=== PATIENT | female | born 1960 | race Caucasian/White ===

== ENCOUNTER 2016-10-26 18:04 | Emergency (ER) | payer BC, OTHER ==
[2016-10-26] MEDS ORDERED: NS 0.9% 1000 ML* 1,000 ML IV ONE (19:48)
[2016-10-26] MEDS ORDERED: Levofloxacin 750 MG IVPREMIX(* 750 MG/150 ML BAG IVPB ONE (19:53)
[2016-10-26] MEDS ORDERED: methylPREDNISolone 125 MG* 2 ML VIAL IV ONE (19:53)
[2016-10-26 20:19] LABS: Hematocrit 39 % (35-47); Hemoglobin 12.9 g/dl (12.0-16.0); Mean Corpuscular HGB Conc 33 g/dl (31-36); Mean Corpuscular Hemoglobin 31 pg (27-31); Mean Corpuscular Volume 92 fL (80-97); Mean Platelet Volume 9 um3 (7.4-10.4); Red Blood Count 4.24 10^6/ul (4.0-5.4); Red Cell Distribution Width 14 % (10.5-15); White Blood Count 5.6 10^3/ul (3.5-10.8)
[2016-10-26 20:38] LABS: BUN/Creatinine Ratio 14.2 (8-20); C Reactive Protein 15.95 mg/L (< 5.00); Calcium 9.5 mg/dL (8.6-10.3); EGFR African American 69.2 (>60); EGFR Non-African American 53.8 (>60); Globulin 3.5 g/dL (2-4); Potassium 3.5 mmol/L (3.5-5.0); Total Bilirubin 0.5 mg/dL (0.2-1.0); Total Protein 7.5 g/dL (6.4-8.9)
[2016-10-26] MEDS: Albuterol/Ipratropium NEB.SOL* Albuterol 2.5 MG/Ipratropium 0.5 MG 3 ML INH SCH ×2 (20:39→21:01)
--- NOTE | 2016-10-26 20:47 | RAD ---
INDICATION: Cough. COMPARISON: Comparison is made with a prior study from July 06, 2013. TECHNIQUE: Dual-energy PA and lateral views of the chest were obtained. FINDINGS: The heart is within normal limits in size. Mediastinal and hilar contours appear within normal limits. The lungs are hyperinflated and clear. No pleural effusion is seen. IMPRESSION: FINDINGS SUGGESTIVE OF COPD, NO EVIDENCE FOR ACUTE FINDING.
[2016-10-26 21:39] LABS: Urine Bilirubin 1+ (Negative); Urine Glucose Negative (Negative); Urine Nitrite Negative (Negative)
[2016-10-26] MEDS ORDERED: Azithromycin TAB* 250 MG PO ONE (21:46)
--- NOTE | 2016-10-26 22:02 | ED ---
Angel Amaro Billy, scribed for Dieter Leach MD on 10/26/16 at 1952 . Respiratory - HPI Summary HPI Summary: Patient is a 55 year-old female coming to [facility] presenting with URI symptoms starting 6 days ago. She states that it began with a sore throat and worsened to chest congestion, wheezing, and productive cough after 2 days. She also reports decreased appetite and fatigue. However, despite a history of COPD and chronic bronchitis, she denies any increased SOB compared to usual. Denies any chest pain. Patient is a former smoker, quit 1 year ago. - History of Current Complaint Chief Complaint: EDShortnessOfBreath Stated Complaint: UPPER RESPIRATORY COMPLAINT Time Seen by Provider: 10/26/16 19:36 Hx Obtained From: Patient Onset/Duration: Gradual Onset, Lasting Days, Still Present Timing: Constant Initial Severity: Moderate Current Severity: Moderate Character: Wheezing, Cough (Productive) Sputum Amount: Moderate Aggravating Factor(s): URI Alleviating Factor(s): Nothing Associated Signs and Symptoms: URI, Wheezing - Allergy/Home Medications Allergies/Adverse Reactions: Allergies Allergy/AdvReac Type Severity Reaction Status Date / Time No Known Allergies Allergy Verified 01/19/16 07:23 PMH/Surg Hx/FS Hx/Imm Hx Endocrine/Hematology History: Denies: Hx Diabetes Cardiovascular History: Reports: Hx Hypertension Denies: Hx Congestive Heart Failure Respiratory History: Reports: Hx Chronic Bronchitis, Hx Chronic Obstructive Pulmonary Disease (COPD) - chronic bronchitis, Hx Pneumonia - walking pneumonia , Other Respiratory Problems/Disorders - copd Comment Only: Hx Sleep Apnea - never tested, wakes up gasping at times History: Denies: Hx Renal Disease Musculoskeletal History: Reports: Hx Arthritis, Hx Back Problems Denies: Hx Bursitis, Hx Congenital Bone Abnormalities, Hx Fibromyalgia, Hx Gout, Hx Orthopedic Injury, Hx Osteoporosis, Hx Scoliosis, Hx Tendonitis, Other Musculoskeletal History Sensory History: Reports: Hx Contacts or Glasses Denies: Hx Cataracts, Hx Eye Injury, Hx Eye Prosthesis, Hx Glaucoma, Hx Legally Blind, Hx Macular Degeneration, Hx Vision Problem, Hx Deafness, Hx Hearing Aid, Hx Hearing Problem, Other Sensory Impairments Opthamlomology History: Reports: Hx Contacts or Glasses Denies: Hx Cataracts, Hx Eye Injury, Hx Eye Prosthesis, Hx Glaucoma, Hx Legally Blind, Hx Macular Degeneration, Hx Vision Problem, Other Sensory Impairments Neurological History: Reports: Hx Migraine Denies: Hx Dementia, Hx Developmental Delay, Hx Headaches, Hx Nerve Disease, Hx Seizures, Hx Spinal Cord Injury, Hx Transient Ischemic Attacks (TIA), Other Neuro Impairments/Disorders - Cancer History Hx Chemotherapy: No Hx Radiation Therapy: No Infectious Disease History: No Infectious Disease History: Denies: Traveled Outside the [place] in Last 30 Days - Family History Known Family History: Positive: Hypertension, Diabetes - Social History Alcohol Use: None Substance Use Type: Reports: None Hx Tobacco Use: Yes Smoking Status (MU): Former Smoker Type: Cigarettes Amount Used/How Often: 1 PPD Review of Systems Positive: Fatigue Positive: Sore Throat Positive: Cough, Other - chest congestion, wheezing Positive: Other - decreased appetite All Other Systems Reviewed And Are Negative: Yes Physical Exam - Summary Physical Exam Summary: VITAL SIGNS: Reviewed. GENERAL: Patient is a well developed and nourished female with some distress secondary to the shortness of breath. However, she is able to speak in full sentences. HEAD AND FACE: Normocephalic and atraumatic. EYES: PERRLA, EOMI x 2, No injected conjunctiva. EARS: Hearing grossly intact. Ear canals and tympanic membranes WNL MOUTH: Dry oral mucosa. NECK: Supple, trachea is midline, no adenopathy, no JVD, no carotid bruit. CHEST: Symmetric, No intercostal or abdominal retraction, LUNGS: Diffuse bilateral wheezing and decreased breath sounds.No crackles. CVS: RRR,, S1 and S2 present, no murmurs or gallops appreciated. ABDOMEN: Soft, non-tender. No signs of distention. Positive BS. No rebound, no guarding, and no masses palpated. EXTREMITIES: FROM in all major joints, no edema, no cyanosis or clubbing. NEURO: Alert and oriented x 3. No acute neurological deficits. Speech is normal and follows commands. SKIN: Dry and warm Triage Information Reviewed: Yes Vital Signs On Initial Exam: Initial Vitals Temp Pulse Resp BP Pulse Ox 99.7 F 115 36 190/102 93 10/26/16 18:31 10/26/16 18:31 10/26/16 18:31 10/26/16 18:31 10/26/16 18:31 Vital Signs Reviewed: Yes - Sushant Coma Scale Coma Scale Total: 15 Diagnostics - Vital Signs Vital Signs Temp Pulse Resp BP Pulse Ox 10/26/16 19:45 98.8 F 96 20 189/93 95 10/26/16 18:31 99.7 F 115 36 190/102 93 - Laboratory Result Diagrams: 10/26/16 20:00 10/26/16 20:00 Lab Statement: Any lab studies that have been ordered have been reviewed, and results considered in the medical decision making process. - Radiology CXR Radiology Interpretation Completed By: Radiologist - COPD, no acute findings. Disposition - Course Assessment/Plan: Patient is a 55 year-old female coming to [facility] presenting with URI symptoms starting 6 days ago. She states that it began with a sore throat and worsened to chest congestion, wheezing, and productive cough after 2 days. She also reports decreased appetite and fatigue. However, despite a history of COPD and chronic bronchitis, she denies any increased SOB compared to usual. Denies any chest pain. Patient is a former smoker, quit 1 year ago. Bloodwork WNL except for creatinine 1.06, glu 122, and CRP of 50.9. CXR shows findings suggestive of COPD without acute findings. In the ED course, patient was given duoneb, solumedrol, and levaquin for COPD exacerbation. After these medications, patient was feeling better. She will be discharged to follow up with PCP. She will be given Rx for levaquin and prednisone. I discussed all the findings and test results with the patient. Patient was instructed to return to the emergency room immediately if any of the symptoms return or worsens. Patient understand and agree. Plan of care was discussed with the patient and understands and agrees. All questions were answered at patient satisfaction. There were no further complaints or concerns. Lung exam before discharge: CTA B/L. Good air exchange. No wheezing or crackles heard. CVS: S1 and S2 present. No murmurs appreciated. Patient is alert and oriented x 3. Patient is hemodynamically stable. Patient will be discharged home with follow up touch up edger in the next 2-3 days - Differential Dx - Cardiopulmonary Differential Diagnoses - Cardiopulmonary: Asthma, Bronchitis, CHF, Pulmonary Edema - Diagnoses Provider Diagnoses: COPD exacerbation, Bronchitis Discharge - Discharge Plan Condition: Stable Disposition: HOME Prescriptions: Levofloxacin TAB* [Levaquin TAB*] 750 mg PO DAILY #7 tab predniSONE TAB* [Deltasone TAB*] 40 mg PO DAILY #8 tab Patient Education Materials: Acute Bronchitis (ED), COPD (Chronic Obstructive Pulmonary Disease) (ED) Referrals: Tim Gomes MD [Primary Care Provider] - The documentation as recorded by the Angel liu Billy accurately reflects the service I personally performed and the decisions made by me, Dieter Leach MD.
[2016-10-26 23:03] VITALS: BP 171/118
== END 2016-10-26 23:25 | disposition home or self-care (01) ==
LOC: ED 18:04
DX: J44.1 Chronic obstructive pulmonary disease with (acute) exacerbation (principal); J40 Bronchitis, not specified as acute or chronic; J06.9 Acute upper respiratory infection, unspecified; R06.02 Shortness of breath; R06.2 Wheezing; Z87.891 Personal history of nicotine dependence
CPT/HCPCS: 36415; 71020; 80053; 81003; 82553; 83605; 83880; 84484; 85025; 86140; 87040; 94640; 96365; 99283; A9270-GY; J2930

== ENCOUNTER → 2018-08-30 12:26 | Emergency (ER) | payer BC ==
[~2018-08-30 12:26] MED LIST: Sucralfate TAB* 1 GM PO ONE
--- NOTE | 2018-08-30 13:58 | ED ---
Abdominal Pain/Female - HPI Summary HPI Summary: A 57 y/o female presents to [facility] with a chief complaint of constant upper abdominal pain since 08/28/18. She rates her pain as 5/10. She also c/o intermittent nausea. She had chest tightness on 08/29/18 but denies current CP. The patient denies vomiting or diarrhea. She claims that her abdominal pain is only alleviated for a couple minutes after eating. She has a Hx of COPD, diverticulitis and hiatal hernia. She denies a surgical history. - History of Current Complaint Chief Complaint: EDAbdPain Stated Complaint: ABD PAIN Time Seen by Provider: 08/30/18 13:21 Hx Obtained From: Patient Hx Last Menstrual Period: 3-4 months ago - spotting occas Onset/Duration: Sudden Onset, Lasting Days, Still Present Timing: Constant Severity Initially: Moderate Severity Currently: Moderate Pain Intensity: 5 Pain Scale Used: 0-10 Numeric Location: Diffuse - upper Radiates: No Character: Cramping Alleviating Factor(s): Other: - eating alleviates her pain for a couple minutes Associated Signs and Symptoms: Positive: Nausea. Negative: Fever, Chest Pain, Vomiting, Diarrhea Allergies/Adverse Reactions: Allergies Allergy/AdvReac Type Severity Reaction Status Date / Time No Known Allergies Allergy Verified 08/14/17 09:39 PMH/Surg Hx/FS Hx/Imm Hx Endocrine/Hematology History: Denies: Hx Diabetes Cardiovascular History: Reports: Hx Hypertension Denies: Hx Congestive Heart Failure, Hx Pacemaker/ICD Respiratory History: Reports: Hx Chronic Bronchitis, Hx Chronic Obstructive Pulmonary Disease (COPD) - chronic bronchitis, Hx Pneumonia - walking pneumonia , Other Respiratory Problems/Disorders - copd Denies: Hx Asthma Comment Only: Hx Sleep Apnea - never tested, wakes up gasping at times History: Denies: Hx Renal Disease Musculoskeletal History: Reports: Hx Arthritis, Hx Back Problems Denies: Hx Bursitis, Hx Congenital Bone Abnormalities, Hx Fibromyalgia, Hx Gout, Hx Orthopedic Injury, Hx Osteoporosis, Hx Scoliosis, Hx Tendonitis, Other Musculoskeletal History Sensory History: Reports: Hx Contacts or Glasses Denies: Hx Cataracts, Hx Eye Injury, Hx Eye Prosthesis, Hx Glaucoma, Hx Legally Blind, Hx Macular Degeneration, Hx Vision Problem, Hx Deafness, Hx Hearing Aid, Hx Hearing Problem, Other Sensory Impairments Opthamlomology History: Reports: Hx Contacts or Glasses Denies: Hx Cataracts, Hx Eye Injury, Hx Eye Prosthesis, Hx Glaucoma, Hx Legally Blind, Hx Macular Degeneration, Hx Vision Problem, Other Sensory Impairments Neurological History: Reports: Hx Migraine Denies: Hx Dementia, Hx Developmental Delay, Hx Headaches, Hx Nerve Disease, Hx Seizures, Hx Spinal Cord Injury, Hx Transient Ischemic Attacks (TIA), Other Neuro Impairments/Disorders Psychiatric History: Denies: Hx Panic Disorder - Cancer History Hx Chemotherapy: No Hx Radiation Therapy: No Infectious Disease History: No Infectious Disease History: Denies: Traveled Outside the [place] in Last 30 Days - Family History Known Family History: Positive: Hypertension, Diabetes - Social History Alcohol Use: None Substance Use Type: Reports: None Hx Tobacco Use: Yes Smoking Status (MU): Former Smoker Type: Cigarettes Amount Used/How Often: 1 PPD Review of Systems Negative: Fever Negative: Chest Pain Positive: Abdominal Pain, Nausea. Negative: Vomiting, Diarrhea All Other Systems Reviewed And Are Negative: Yes Physical Exam - Summary Physical Exam Summary: Appearance: The patient is well-nourished in no acute distress and in no acute pain. Skin: The skin is warm and dry and skin color reflects adequate perfusion. HEENT: The head is normocephalic and atraumatic. The pupils are equal and reactive. The conjunctivae are clear and without drainage. Nares are patent and without drainage. Mouth reveals moist mucous membranes and the throat is without erythema and exudate. The external ears are intact. The ear canals are patent and without drainage. The tympanic membranes are intact. Neck: The neck is supple with full range of motion and non-tender. There are no carotid bruits. There is no neck vein distension. Respiratory: Chest is non-tender. Lungs are clear to auscultation and breath sounds are symmetrical and equal. Cardiovascular: Heart is regular rate and rhythm. There is no murmur or rub auscultated. There is no peripheral edema and pulses are symmetrical and equal. Abdomen: Mild to moderate epigastric tenderness. There are normal bowel sounds heard in all four quadrants and there is no organomegaly palpated. Musculoskeletal: There is no back tenderness noted. Extremities are non-tender with full range of motion. There is good capillary refill. There is no peripheral edema or calf tenderness elicited. Neurological: Patient is alert and oriented to person, place and time. The patient has symmetrical motor strength in all four extremities. Cranial nerves are grossly intact. Deep tendon reflexes are symmetrical and equal in all four extremities. Psychiatric: The patient has an appropriate affect and does not exhibit any anxiety or depression. Triage Information Reviewed: Yes Vital Signs On Initial Exam: Initial Vitals Temp Pulse Resp BP Pulse Ox 97.8 F 81 18 127/77 98 08/30/18 12:32 08/30/18 12:32 08/30/18 12:32 08/30/18 12:32 08/30/18 12:32 Vital Signs Reviewed: Yes Diagnostics - Vital Signs Vital Signs Temp Pulse Resp BP Pulse Ox 08/30/18 12:32 97.8 F 81 18 127/77 98 - Laboratory Result Diagrams: 08/30/18 14:11 08/30/18 14:11 Lab Statement: Any lab studies that have been ordered have been reviewed, and results considered in the medical decision making process. - CT Abdomen/pelvis CT Interpretation Completed By: Radiologist Summary of CT Findings: Severe hepatosteatosis with focal sparing. Correlate with liver function tests for. potential steatohepatitis. Normal appendix documented. Colonic diverticulosis without findings of acute. diverticulitis. Negative for obstructive uropathy. ED physician has reviewed this imaging report. - EKG 14:30 Cardiac Rate: NL - 80 bpm EKG Rhythm: Sinus Rhythm Summary of EKG Findings: Normal sinus rhythm, normal ST, no ectopy, no STEMI. Re-Evaluation - Re-Evaluation First Eval Re-Evaluation Time: 16:05 Change: Improved Comment: Patient is feeling beter. Abdominal Pain Fem Course/Dx - Course Course Of Treatment: Ms. Pablo presented to the emergency department with epigastric pain for the last couple of days. The patient has waxed and waned in she could not identify any exacerbating or relieving factors except briefly after she eats it is relieved. She was nontoxic in appearance and her vital signs were stable on arrival. Labs were obtained and she was given sucralfate by mouth here in the department. She did get transient relief from the sucralfate and her labs are within normal limits therefore I recommended we use sucralfate for a few days to try to calm this down and have her follow up with her PCP. - Diagnoses Provider Diagnoses: Epigastric pain Discharge - Sign-Out/Discharge Documenting (check all that apply): Patient Departure - DC - Discharge Plan Condition: Stable Disposition: HOME Prescriptions: Sucralfate SUSP 1 gm PO QID ACHS #200 ml Referrals: Tim Gomes MD [Primary Care Provider] - 1 Week Additional Instructions: Follow up with your PCP in 1 week. Return to the ED if you experience any new or worsening symptoms. - Billing Disposition and Condition Condition: STABLE Disposition: Home - Attestation Statements Document Initiated by Scribe: Yes Documenting Scribe: Darvin Martínez Provider For Whom Prachiibestrellita is Documenting (Include Credential): Thomas Anderson MD Scribe Attestation: Darvin Amaro, scribed for Thomas Anderson MD on 08/30/18 at 1714. Scribe Documentation Reviewed: Yes Provider Attestation: The documentation as recorded by the Darvin liu accurately reflects the service I personally performed and the decisions made by me, Thomas Anderson MD Status of Scribe Document: Viewed
[2018-08-30 14:19] LABS: ABS Basophils 0.1 10^3/ul (0-0.2); ABS Eosinophils 0.1 10^3/ul (0-0.6); ABS Lymphocytes 2.8 10^3/ul (1.0-4.8); ABS Monocytes 0.6 10^3/ul (0-0.8); ABS Nucleated RBC 0 10^3/ul; Eosinophil % 0.8 %; Hematocrit 42 % (35-47); Hemoglobin 14.1 g/dl (12.0-16.0); Lymphocyte % 33.1 %; Mean Corpuscular HGB Conc 33 g/dl (31-36); Mean Corpuscular Hemoglobin 32 pg (27-31); Mean Corpuscular Volume 97 fL (80-97); Mean Platelet Volume 9.1 fL (7.4-10.4); Nucleated Red Blood Cells % 0.2; Platelet Count 205 10^3/ul (150-450); Red Blood Count 4.36 10^6/ul (4.00-5.40); Red Cell Distribution Width 13 % (10.5-15); White Blood Count 8.5 10^3/ul (3.5-10.8)
[2018-08-30 14:40] LABS: EGFR Non-African American 48.6 (>60)
[2018-08-30 15:39] LABS: Urine Appearance Clear; Urine Blood Negative (Negative); Urine Color Yellow; Urine Ketones Negative (Negative); Urine Protein Negative (Negative); Urine Urobilinogen Positive (Negative)
[2018-08-30 16:25] VITALS: BP 123/85
== END | disposition home or self-care (01) ==
LOC: ED 12:26
DX: R10.13 Epigastric pain (principal); R11.0 Nausea
CPT/HCPCS: 36415; 74176; 80053; 81003; 83605; 83690; 84484; 85025; 86140; 93005; 99283; A9270-GY